=== PATIENT | female | born 1935 | race Caucasian/White ===

== ENCOUNTER 2018-06-29 07:55 | Inpatient (IN) ==
[2018-06-29] MEDS ORDERED: Metoprolol Tartrate 25 MG Tablet PO SCH (09:30)
[2018-06-29] MEDS ORDERED: Chlorhexidine Gluconate 2% 1 Pack (2 Cloths) TOPICAL SCH (09:30)
[2018-06-29] MEDS ORDERED: Heparin - SQ 10,000 UNITS/ML Vial SQ SCH (09:45)
[2018-06-29] MEDS ORDERED: Sodium Chlor 0.9% Inj 500 ML IV.SIG SCH (10:00)
[2018-06-29] MEDS ORDERED: Sugammadex Inj 200 MG/2 ML Vial IV.PUSH ONE (11:04)
[2018-06-29] MEDS ORDERED: Famotidine PF Inj 20 MG/2 ML Vial ONE (11:04)
[2018-06-29] MEDS ORDERED: Labetalol HCl Inj 100 MG/20 ML Vial IV.PUSH ONE (12:00)
[2018-06-29] MEDS ORDERED: Lidocaine PF 1% Inj 5 ML Syringe INFILTRATN ONE (12:00)
[2018-06-29] MEDS ORDERED: Phenylephrine/NS 1000 MCG/10ML Syringe IV.PUSH ONE (12:00)
[2018-06-29 13:59] LABS: ABG Base Excess -4.6 mmol/L (-2-2); ABG PCO2 41 mmHg (38-42); ABG PO2 137 mmHG (61-120)
[2018-06-29 14:07] LABS: Baso % (Auto) 0.3 % (0.0-2.0); Eos # (Auto) 0.2 th/mm3 (0.0-0.4); Eos % (Auto) 1.8 % (0.0-4.0); Hemoglobin 10.1 gm/dL (11.6-15.3); Lymph # (Auto) 2.2 th/mm3 (1.0-4.8); Lymph % (Auto) 19.1 % (9.0-44.0); Mean Corpuscular HGB Conc 32.4 % (32.0-36.0); Mean Corpuscular Hemoglobin 28.6 pg (27.0-34.0); Mean Corpuscular Volume 88.1 fL (80.0-100.0); Mean Platelet Volume 8.5 fL (7.0-11.0); Mono # (Auto) 0.7 th/mm3 (0.0-0.9); Mono % (Auto) 6.3 % (0.0-8.0); Neut # (Auto) 8.3 th/mm3 (1.8-7.7); Neut % (Auto) 72.5 % (16.0-70.0); Platelet Count 333 th/mm3 (150-450); Red Blood Count 3.53 mil/mm3 (4.00-5.30); Red Cell Distribution Width 15.8 % (11.6-17.2); White Blood Count 11.4 th/mm3 (4.0-11.0)
[2018-06-29 16:50] LABS: Baso % (Auto) 0.2 % (0.0-2.0); Eos % (Auto) 0.2 % (0.0-4.0); Hematocrit 28.1 % (35.0-46.0); Hemoglobin 9.7 gm/dL (11.6-15.3); Lymph # (Auto) 2.3 th/mm3 (1.0-4.8); Lymph % (Auto) 10.3 % (9.0-44.0); Mean Corpuscular HGB Conc 34.4 % (32.0-36.0); Mean Corpuscular Hemoglobin 30.4 pg (27.0-34.0); Mean Corpuscular Volume 88.5 fL (80.0-100.0); Mean Platelet Volume 8.7 fL (7.0-11.0); Mono # (Auto) 0.8 th/mm3 (0.0-0.9); Mono % (Auto) 3.5 % (0.0-8.0); Neut # (Auto) 18.7 th/mm3 (1.8-7.7); Neut % (Auto) 85.8 % (16.0-70.0); Platelet Count 336 th/mm3 (150-450); Red Blood Count 3.18 mil/mm3 (4.00-5.30); Red Cell Distribution Width 15.9 % (11.6-17.2); White Blood Count 21.8 th/mm3 (4.0-11.0)
[2018-06-29] MEDS ORDERED: *Ondansetron Inj 4 MG/2 ML Vial PERIprocedural Use ONLY ONE (17:09)
[2018-06-29 17:10] LABS: Calcium 7.4 mg/dL (8.5-10.1); Carbon Dioxide 19.6 meq/L (21.0-32.0); Potassium 4.7 meq/L (3.5-5.1)
[2018-06-29] MEDS ORDERED: HYDROmorphone PF Inj 2 MG/ML Vial ONE (17:18)
[2018-06-29 17:19] LABS: Eosinophils 1 % (0-4); Lymphocytes 10 % (9-44); Monocytes 2 % (0-8)
[2018-06-29] MEDS ORDERED: fentaNYL Citrate Inj 100 MCG/2 ML Ampul ONE (17:19)
[2018-06-29 17:20] LABS: Platelet Estimate Normal (Normal); Platelet Morphology Normal (Normal)
[2018-06-29 17:26] LABS: Total Protein 5.4 g/dL (6.4-8.2)
[2018-06-29] MEDS: KCL 20 mEq/D5W/NaCl 0.45% Inj 1,000 ML IV.CONT SCH (18:00)
[2018-06-29] MEDS ORDERED: Ketorolac Inj 30 MG/ML (IVP) Vial IV.PUSH SCH (18:00)
--- NOTE | 2018-06-29 18:09 | P.CONCC ---
History of Present Illness Service: Critical care medicine Consult date: 06/29/18 Requesting Physician: Lary Abdlu Reason for Consult: Critical care management Primary Care Provider: Ramon Ring MD Family Provider: Unknown Chief Complaint: Status post exploratory laparotomy History of Present Illness: This is an 83-year-old female. Date of admission 06/29/2018. Consultation 06/29/2018. Past medical history includes hypertension, hyperlipidemia, diverticulosis, gastroesophageal reflux, hiatal hernia, hypothyroidism and allergic rhinitis. 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 Abdul. Received 2600 crystalloid. 1000 cc EBL. 500 cc urine output. Ascites is approximately 1400 cc. Hemoglobin is currently 9.7. Patient was weaned off phenylephrine drip is currently hemodynamic stable. Currently complaining of nausea received ondansetron and metoclopramide. Review of Systems Constitutional: Reports weakness, Reports weight gain, Denies anorexia, Denies body ache(s), Denies night sweats, Denies weight loss Eyes: Denies dry eyes, Denies sensitivity to light Ears, Nose, Mouth, and Throat: Reports abnormal hearing, Reports sore throat, Denies bad breath, Denies poor balance Cardiovascular: Denies chest pain, Denies shortness of breath Respiratory: Denies cough, Denies shortness of breath Gastrointestinal: Reports abdominal pain, Reports nausea, Denies vomiting Genitourinary: Denies sexual problems Musculoskeletal: Denies back pain, Denies neck pain Skin/Breast: Denies lesions, Denies rash Neurologic: Denies lack of coordination, Denies localized weakness, Denies tremor(s) Psychiatric: Denies anxiety, Denies depression Endocrine: Denies increased thirst, Denies increased urination Hematologic/Lymphatic: Denies easy bleeding Allergic/Immunologic: Reports seasonal runny nose, Denies GI upset with certain foods PMFSH - History History Provided By: Patient - Medical History Medical History: Medical History (Last Updated 06/29/18 @ 08:54 by Johanna Sharma) Kidney dysfunction Diverticulitis Full dentures GERD (gastroesophageal reflux disease) Hernia, hiatal History of anesthesia reaction History of open fracture Hx of ascites Hypertension Hypothyroidism - Surgical History Surgical History: Surgical History (Last Reviewed 06/29/18 @ 08:23 by Johanna Sharma) Hx of cataract surgery Hx of cholecystectomy Hx of hemorrhoidectomy - Family History Family History: Family History (Last Updated 06/29/18 @ 18:07 by Eduin Graff MD) Other No significant family history - Tobacco History Second Hand Smoke Exposure: No Tobacco Use In Past 30 Days: No Smoking Status: Former smoker Tobacco Type: Cigarettes - Alcohol History How Often Do You Have a Drink Containing Alcohol: Monthly or less - Substance Use History Substance History: No History of Abuse Medications and Allergies Active Medications: Active Medications Atorvastatin Calcium (Lipitor) 10 mg PO DAILY [facility] Chlorhexidine Gluconate (Chlorhexidine 2% Cloth) 3 pack TOPICAL [facility]ARE [facility]ION [facility] Stop: 07/02/18 09:26 Last Admin: 06/29/18 08:15 Dose: 3 pack Clonidine HCl (Catapres) 0.1 mg PO HS [facility]ESS Clonidine HCl (Catapres) 0.2 mg PO DAILY [facility] Diphenhydramine HCl (Benadryl) 25 mg PO Q6H PRN PRN Reason: ITCHING Fenofibrate (Tricor) 48 mg PO DAILY [facility] Heparin Sodium (Porcine) (Heparin Inj) 5,000 units SQ [facility]ANION [facility] Stop: 07/02/18 09:44 Last Admin: 06/29/18 10:07 Dose: 5,000 units Lactated Ringer's (Lr 1000 Ml Inj) 1,000 mls @ 30 mls/hr IV.SIG .Q24H [facility]ESS Stop: 07/02/18 09:26 Last Infusion: 06/29/18 13:15 Dose: Infused Sodium Chloride (Ns Inj) 500 mls @ 30 mls/hr IV.SIG .Q10H [facility] Stop: 07/02/18 09:26 Cefazolin Sodium 1,000 mg/ (Sodium Chloride) 100 mls @ 200 mls/hr IV.SIG [facility] Stop: 07/02/18 09:59 Last Admin: 06/29/18 11:45 Dose: 200 mls/hr Potassium Chloride/Dextrose/Sod Cl (D5w/1/2ns + Kcl 20 Meq Inj) 1,000 mls @ 100 mls/hr IV.CONT .Q10H [facility] Ketorolac Tromethamine (Toradol Inj) 15 mg IV.PUSH Q6HR [facility] Stop: 07/01/18 12:01 Levothyroxine Sodium (Synthroid) 75 mcg PO DAILY@0600 [facility] Metoprolol Tartrate (Lopressor) 25 mg PO [facility] Stop: 07/02/18 09:26 Miscellaneous Information ([facility] [place] [facility] [place] 1 each OTHER UNSCH PRN PRN Reason: SEE LABEL COMMENTS Stop: 06/30/18 17:04 Ondansetron HCl (Zofran Odt) 4 mg SL Q6H PRN PRN Reason: NAUSEA OR VOMITING Pantoprazole Sodium (Protonix) 40 mg PO DAILY [facility] Patient Own Medication - ( Levocetirizine [ Levocetirizine] 5 Mg ) Tablet 1 each PO DAILY [facility] Povidone Iodine (Betadine 5% Antisepsis Kit) 1 applicatio EACH NARE [facility] Stop: 07/02/18 09:26 Last Admin: 06/29/18 09:00 Dose: 1 applicatio Prochlorperazine Edisylate (Compazine Inj) 5 mg IV.PUSH Q4H PRN PRN Reason: BREAKTHROUGH NAUSEA Sodium Chloride (Ns Flush) 2 ml IV.FLUSH BID [facility] Sodium Chloride (Ns Flush) 2 ml IV.FLUSH PRN PRN PRN Reason: FLUSH AFTER USING IV ACCESS Tramadol HCl (Ultram) 50 mg PO Q6H PRN PRN Reason: PAIN SCALE 1-10 Allergies Allergy/AdvReac Type Severity Reaction Status Date / Time morphine Allergy Swelling Verified 06/29/18 08:31 of Lip/Tongue/Throat diazepam [From Valium] AdvReac Hallucinati Verified 06/29/18 08:57 ons Home Medications Medication Instructions Recorded Confirmed Type atorvastatin 10 mg PO DAILY 06/18/18 06/29/18 History biotin 1 mg PO DAILY 06/18/18 06/29/18 History clonidine HCl 0.1 mg PO HS 06/18/18 06/29/18 History clonidine HCl 0.2 mg PO DAILY 06/18/18 06/29/18 History fenofibrate nanocrystallized 48 mg PO DAILY 06/18/18 06/29/18 History levocetirizine 5 mg PO DAILY 06/18/18 06/29/18 History levothyroxine [Synthroid] 75 mcg PO DAILY 06/18/18 06/29/18 History lisinopril 40 mg PO DAILY 06/18/18 06/29/18 History metoprolol succinate 100 mg PO HS 06/18/18 06/29/18 History multivitamin [Daily Multi-Vitamin] 1 tab PO DAILY 06/18/18 06/29/18 History pantoprazole [Protonix] 40 mg PO DAILY 06/18/18 06/29/18 History aspirin [Adult Low Dose Aspirin] 81 mg PO DAILY 06/29/18 06/29/18 History Physical Exam Vital signs: Vital Signs 06/29/18 08:36 Temperature 98.8 F Pulse Rate 88 Respiratory Rate 16 Blood Pressure 142/69 H Pulse Oximetry 95 Intake & Output 06/28/18 06/29/18 06/29/18 18:59 06:59 18:59 Intake Total 2600 / 2600 Output Total 1500 / 1500 Balance 1100 / 1100 Weight 76.1 kg Intake: IV 1000 / 1000 LR 1000 mL Inj 1,000 ML @ 30 1000 / 1000 mls/hr IV.SIG .Q24H [facility]ESS Rx#: [id number] Anesthesia Amount 1600 / 1600 Output: Estimated Blood Loss 1000 / 1000 Urine Amount (Catheter) 500 / 500 3-way Urethral 500 / 500 Other: Weight On Admission 76.1 kg - Constitutional no acute distress, thin, cooperative - Routine HEENT Exam Head: Present: normocephalic, atraumatic Eye: Present: EOMI, PERRL ENT: Present: mucous membranes moist - Routine Neck Exam Present: supple. Absent: JVD - Routine Respiratory Exam Present: CTA bilaterally. Absent: rales, rhonchi, wheezes, crackles - Routine Cardiovascular Exam Present: RRR, S1, S2, murmur. Absent: rubs, S3, S4, click - Routine Abdominal Exam Present: soft, tenderness, surgical scars. Absent: distended, drain - Routine Exam Patient deferred: external exam, groin exam, perineal exam - Routine Skin Exam Present: dry. Absent: cyanosis, erythema - Routine Neurological Exam Present: alert, CN II-XII intact. Absent: sensory deficit, motor deficit - Detailed Neurological Exam: Coma Scale Eye Opening: Spontaneous Verbal Response: Oriented Motor Response: Obey commands Miriam Coma Scale Total: 15 - Routine Psychiatric Exam Present: normal affect - Urinary Catheter Management 3-way Urethral Cath placed during this visit: yes Reason for continuing: Hourly intake/output Insertion date: 06/29/18 Insertion time: 12:43 Septic Shock Reassessment Septic shock perfusion: reassessment completed Assessment and Plan - Assessment and Plan Plan: Neuro/Psych: History of allergic rhinitis Ketorolac 15 mg IV every 6 hours 2 days scheduled Tramadol 50 mg every 6 hours as needed pain Hydromorphone 0.5 mg IV every 4 hours as needed breakthrough pain Holding levo cetirizine/home medication. Resume when clinically indicated CV: History of essential hypertension Hyperlipidemia Resume atorvastatin 10 mg daily/home medication with fenofibrate 48 mg daily Holding metoprolol succinate 100 mg daily lisinopril 40 mg daily in light of hypotension. Continue clonidine 0.2 mg a.m. 0.1 mg at bedtime. Hold if heart rate less than 60, systolic blood pressure less than 110 Hold aspirin 81 mg daily postoperative with acute bleeding Resp: Nasal cannula to maintain saturations greater than or equal to 92%. Currently on 2 L Incentives spirometry every hour while awake. GI: Gastroesophageal reflux disease History of hiatal hernia Diverticulosis Postoperative nausea Clear liquid diet per Dr. bAdul Pantoprazole for GI prophylaxis. Patient is on Protonix 40 mg daily at home. As needed metoclopramide, ondansetron and prochlorperazine for nausea : Patient currently has a Isaac catheter. 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 Abdul Postoperative cares for Dr. Adbul Endo: Hypothyroidism Continue levothyroxine 75 mcg p.o. daily. Sliding-scale insulin if indicated to maintain euglycemia Renal: Check BMP stat. Monitor urine output Accurate I's and O's Heme: Acute blood loss anemia Recheck CBC now. Last hemoglobin 9.7. Patient is type and screen Monitor CBC daily. Follow trends ID: Monitor for signs and symptomatology of infection. Received 2 g cefazolin in OR. MSK: PT evaluate and treat FEN: Replace electrolytes as clinically indicated Currently on D5 one half normal saline with 20 mEq potassium chloride at 100 cc an hour Access -Left radial arterial line day #1 placed in OR Prophylaxis -GI -pantoprazole -DVT -SCD/pharmacological prophylaxis when okay with Dr. 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 Dr. Abdul. Care plan discussed and all questions answered.
[2018-06-29] MEDS ORDERED: HYDROmorphone PF Inj 0.5 MG/0.5 ML Syringe IV.PUSH PRN (18:12)
[2018-06-29] MEDS ORDERED: HYDROmorphone PF Inj 2 MG/ML Vial IV.PUSH PRN (18:30)
[2018-06-30 02:41] LABS: Hematocrit 27.1 % (35.0-46.0); Hemoglobin 8.6 gm/dL (11.6-15.3); Lymph # (Auto) 0.5 th/mm3 (1.0-4.8); Lymph % (Auto) 3.7 % (9.0-44.0); Mean Corpuscular HGB Conc 31.9 % (32.0-36.0); Mean Corpuscular Hemoglobin 27.9 pg (27.0-34.0); Mean Corpuscular Volume 87.4 fL (80.0-100.0); Mean Platelet Volume 8.5 fL (7.0-11.0); Mono # (Auto) 0.8 th/mm3 (0.0-0.9); Mono % (Auto) 5.3 % (0.0-8.0); Neut # (Auto) 12.8 th/mm3 (1.8-7.7); Platelet Count 280 th/mm3 (150-450); Red Cell Distribution Width 15.4 % (11.6-17.2)
[2018-06-30 02:58] LABS: Calcium 7.5 mg/dL (8.5-10.1); Carbon Dioxide 19.1 meq/L (21.0-32.0); Magnesium 1.8 mg/dL (1.5-2.5); Phosphorus 3.7 mg/dL (2.5-4.9)
[2018-06-30 02:59] LABS: INR 1.1 Ratio; Prothrombin Time 11.4 sec (9.8-11.6)
[2018-06-30 03:08] LABS: Thyroid Stimulating Hormone 2.8 uIU/mL (0.358-3.740)
[2018-06-30] MEDS: KCL 20 mEq/D5W/NaCl 0.45% Inj 1,000 ML IV.CONT SCH ×2 (04:13→14:28)
[2018-06-30] MEDS: Levothyroxine 75 MCG Tablet PO SCH (05:30)
--- NOTE | 2018-06-30 07:24 | P.PN ---
Subjective Interval history: c/o pain, nausea c/w surgery c/o nausea c/w anesthesia improved with meds Physical Exam Vital signs: Vital Signs 06/29/18 08:36 06/29/18 17:05 06/29/18 17:15 Temperature 98.8 F 97.5 F L Pulse Rate 88 70 66 Respiratory Rate 16 16 16 Blood Pressure 142/69 H 105/70 106/53 L Pulse Oximetry 95 100 99 06/29/18 17:30 06/29/18 17:45 06/29/18 18:00 Temperature Pulse Rate 64 62 62 Respiratory Rate 16 16 16 Blood Pressure 100/52 L 102/51 L 110/55 L Pulse Oximetry 99 100 100 06/29/18 18:15 06/29/18 18:30 06/29/18 20:00 Temperature 97.8 F Pulse Rate 62 64 61 Respiratory Rate 16 16 21 Blood Pressure 104/51 L 106/51 L 134/60 Pulse Oximetry 100 100 99 06/29/18 22:45 06/30/18 00:00 06/30/18 04:00 Temperature Pulse Rate Respiratory Rate Blood Pressure 131/75 116/56 L Pulse Oximetry 100 98 98 Intake & Output 06/29/18 06/30/18 06/30/18 18:59 06:59 18:59 Intake Total 2800 / 2800 1100 / 1100 Output Total 1600 / 1600 600 / 600 Balance 1200 / 1200 500 / 500 Weight 76.1 kg Intake: IV 1000 / 1000 1100 / 1100 D5W/1/2NS + KCL 20 mEq Inj 1, 1000 / 1000 000 ML @ 100 mls/hr IV.CONT . Q10H [facility] Rx#:[id number] Ofirmev Inj 1,000 mg In 100 ml 100 / 100 @ 400 mls/hr IV.SIG Q8H [facility] Rx# :[id number] LR 1000 mL Inj 1,000 ML @ 30 1000 / 1000 mls/hr IV.SIG .Q24H [facility] Rx#: [id number] Anesthesia Amount 1600 / 1600 Other 200 / 200 Output: Estimated Blood Loss 1000 / 1000 Urine Amount (Catheter) 600 / 600 600 / 600 3-way Urethral 600 / 600 Indwelling Urethral Catheter 600 / 600 Other: Other Intake Source Saline Solution Weight On Admission 76.1 kg - Constitutional no acute distress - Routine HEENT Exam Eye: Present: PERRL - Routine Cardiovascular Exam Present: RRR - Routine Abdominal Exam Present: soft, wound (clean, dry) - Routine Neurological Exam Present: alert, oriented X3 - Urinary Catheter Management 3-way Urethral Cath placed during this visit: yes Reason for continuing: Acute urinary retention Insertion date: 06/29/18 Insertion time: 12:43 Indwelling Urethral Catheter Cath placed during this visit: no Results - Labs CBC & Chem 7: 06/30/18 02:25 06/30/18 02:25 Laboratory Results - last 24 hr 06/29/18 06/29/18 06/29/18 08:50 13:40 13:50 WBC 11.4 H RBC 3.53 L Hgb 10.1 L Hct 31.0 L MCV 88.1 MCH 28.6 MCHC 32.4 RDW 15.8 Plt Count 333 MPV 8.5 Prelim Diff (Auto) Neut % (Auto) 72.5 H Lymph % (Auto) 19.1 [place] % (Auto) 6.3 Eos % (Auto) 1.8 Baso % (Auto) 0.3 Neut # (Auto) 8.3 H Lymph # (Auto) 2.2 [place] # (Auto) 0.7 Eos # (Auto) 0.2 Baso # (Auto) 0.0 WBC Differential . Seg Neuts % (Manual) Band Neuts % (Manual) Lymphocytes % (Manual) Monocytes % (Manual) Eosinophils % (Manual) Abs Neuts (Manual) Differential Comment Auto diff final Platelet Estimate Platelet Morphology PT INR Puncture Site Art line Patient Temperature 98.6 O2 Saturation 96 ABG pH 7.32 L ABG pCO2 41 ABG pO2 137 H ABG HCO3 21 L ABG O2 Content 14.2 ABG Base Excess -4.6 L ABG Methemoglobin 1.4 Hemoglobin 10.4 L Carboxyhemoglobin 1.4 O2 Delivery Device Ventilator Inspired O2 55 Critical Value No Sodium Potassium Chloride Carbon Dioxide Anion Gap BUN Creatinine Estimated GFR Random Glucose Lactic Acid Calcium Prot Corrected Calcium Phosphorus Magnesium Total Protein TSH Blood Type A Positive Antibody Screen Negative MTS Gel Crossmatch See Detail 06/29/18 06/29/18 06/30/18 16:00 16:00 02:25 WBC 21.8 H D RBC 3.18 L Hgb 9.7 L Hct 28.1 L MCV 88.5 MCH 30.4 MCHC 34.4 RDW 15.9 Plt Count 336 MPV 8.7 Prelim Diff (Auto) Slide review pending Neut % (Auto) 85.8 H Lymph % (Auto) 10.3 [place] % (Auto) 3.5 Eos % (Auto) 0.2 Baso % (Auto) 0.2 Neut # (Auto) 18.7 H Lymph # (Auto) 2.3 [place] # (Auto) 0.8 Eos # (Auto) 0.0 Baso # (Auto) 0.0 WBC Differential Manual diff final Seg Neuts % (Manual) 76 H Band Neuts % (Manual) 11 H Lymphocytes % (Manual) 10 Monocytes % (Manual) 2 Eosinophils % (Manual) 1 Abs Neuts (Manual) 19.0 H Differential Comment . Platelet Estimate Normal Platelet Morphology Normal PT INR Puncture Site Patient Temperature O2 Saturation ABG pH ABG pCO2 ABG pO2 ABG HCO3 ABG O2 Content ABG Base Excess ABG Methemoglobin Hemoglobin Carboxyhemoglobin O2 Delivery Device Inspired O2 Critical Value Sodium 139 Potassium 4.7 Chloride 107 Carbon Dioxide 19.6 L Anion Gap 12 BUN 22 H Creatinine 1.32 H Estimated GFR 38 L Random Glucose 138 H Lactic Acid 0.8 Calcium 7.4 L* Prot Corrected Calcium 8.3 L Phosphorus Magnesium Total Protein 5.4 L TSH Blood Type Antibody Screen MTS Gel Crossmatch 06/30/18 06/30/18 06/30/18 02:25 02:25 02:25 WBC 14.0 H RBC 3.10 L Hgb 8.6 L Hct 27.1 L MCV 87.4 MCH 27.9 MCHC 31.9 L RDW 15.4 Plt Count 280 MPV 8.5 Prelim Diff (Auto) Neut % (Auto) 91.0 H Lymph % (Auto) 3.7 L [place] % (Auto) 5.3 Eos % (Auto) 0.0 Baso % (Auto) 0.0 Neut # (Auto) 12.8 H Lymph # (Auto) 0.5 L [place] # (Auto) 0.8 Eos # (Auto) 0.0 Baso # (Auto) 0.0 WBC Differential . Seg Neuts % (Manual) Band Neuts % (Manual) Lymphocytes % (Manual) Monocytes % (Manual) Eosinophils % (Manual) Abs Neuts (Manual) Differential Comment Auto diff final Platelet Estimate Platelet Morphology PT 11.4 INR 1.1 Puncture Site Patient Temperature O2 Saturation ABG pH ABG pCO2 ABG pO2 ABG HCO3 ABG O2 Content ABG Base Excess ABG Methemoglobin Hemoglobin Carboxyhemoglobin O2 Delivery Device Inspired O2 Critical Value Sodium 138 Potassium 5.0 Chloride 107 Carbon Dioxide 19.1 L Anion Gap 12 BUN 23 H Creatinine 1.64 H Estimated GFR 30 L Random Glucose 204 H Lactic Acid Calcium 7.5 L Prot Corrected Calcium Phosphorus 3.7 Magnesium 1.8 Total Protein TSH 2.800 Blood Type Antibody Screen MTS Gel Crossmatch Assessment and Plan - Plan spirometry, oob to chair brigitte tello/ela sr when ambulatory consider transfusion for hgb < 7 cpm, grateful for country manager care q&a, findings at surgery, preliminary path discussed
--- NOTE | 2018-06-30 08:21 | MP ---
cc: Lary Abdul MD, Carhine Shochan, DATE OF OPERATION: 06/29/2018 PREOPERATIVE DIAGNOSES: 1. Large complex abdominopelvic mass. 2. Status post prior hysterectomy and left salpingo-oophorectomy. POSTOPERATIVE DIAGNOSES: 1. Large right ovarian tumor. 2. Status post prior hysterectomy and left salpingo-oophorectomy. 3. Extensive intraperitoneal and intra-abdominal adhesions. PROCEDURE PERFORMED: Exploratory laparotomy, extensive lysis of adhesions, resection of 28 cm right ovarian tumor and omentectomy. 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 INTRAOPERATIVE CONSULTATION: Dr. Leda Rogers, colorectal surgery. IV FLUIDS: 2600. ESTIMATED BLOOD LOSS: 1000. URINE OUTPUT: 500. ASCITES: 1400. PATIENT HISTORY: An 83-year-old female who by her own admission for at least a year and a half has noticed increasing abdominal girth, pelvic pain and pressure, GI symptomatology for which she finally sought evaluation. She underwent an initial GI evaluation. Further observation and testing revealed an overt complex mass, approximately 28 cm in greatest dimension, large solid component, complex in nature. There was also ascites, pleural effusion, imaging suggesting peritoneal thickening or nodularity and elevated CA-125 of greater than 2000. She was counseled regarding these findings and recommendation for surgical exploration. She is seen again in the preoperative holding area prior to surgery were findings are again reviewed. Plan of care is discussed. Concerns regarding likelihood of malignancy were reviewed. Questions were asked and answered. She expressed good understanding and agreed to move forward with surgery. FINDINGS: Upon exploration, distorted anatomy and extensive adhesions were noted. There was a very large tumor occupying the pelvis, extending well above the pelvis into the abdomen, almost to the level of the sternum, extending from sidewall to sidewall. The omentum is adherent to the mass and pulled down into the pelvis. The sigmoid colon is markedly distorted, it is overlying the mass and the colon and mesentery are draped over the ventral lower portion of the mass and the sigmoid colon is adherent to the peritoneum just below the anterior abdominal wall, fixed to the bladder. The uterus and cervix were found to be surgically absent, consistent with her history and the left tube and ovary were found to be surgically absent, consistent with her history. There were dense adhesions circumferentially around this mass and it took extensive dissection to free these adhesions and to clarify the anatomy and identify the blood supply coming from the right gonadal vessels, which helped confirm this to be a right ovarian tumor. 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 At the conclusion of the case, all grossly visible tumor had been completely resected. Reevaluation of the anatomy showed the liver, diaphragm edges to be smooth. The omentum, although distorted by the mass, grossly appeared normal, other than some inflammatory changes. The large and small bowel were inspected. The small bowel was run from the ileocecal valve to the ligament of Treitz and there were no implants on the bowel or mesentery. No peritoneal implants were able to be appreciated. There was ascites present, which was removed, estimated to be approximately 1400 and the tumor and its attachments were somewhat vascular with an estimated blood loss of 1000 mL. STATEMENT OF COMPLEXITY/MODIFIER: This was an extremely large ovarian tumor that required aggressive cytoreduction, and there were extensive adhesions, which required a significant amount of additional time and dissection to gain access to the peritoneal cavity, restore normal anatomy and accomplish surgical objectives. Modifier should be applied accordingly. DESCRIPTION OF PROCEDURE: She was taken to the operating room and placed in the dorsal lithotomy position, after general endotracheal anesthesia was administered. A timeout was undertaken. She was identified by site recognition and hospital ID bracelet and the proposed procedure was reviewed and confirmed. She was carefully positioned in Fermin stirrups. Her arms were secured, relaxed out to the sides. She was prepped and draped in sterile fashion. Isaac catheter placed in the bladder. An orogastric tube had been placed in the stomach on suction. She was prepped and draped including Ioban over the abdominal wall. She had a previous midline/paramedian vertical incision below her umbilicus, presumably from her hysterectomy and this incision was followed again, carried around the umbilicus, continued up above the umbilicus in the midline. Incision was carried down to the level of the fascia. The fascia was entered. The rectus muscles were in the midline. The peritoneal cavity was entered. Visual and manual inspection confirmed that whereas there was weakness near the umbilicus, there was no hernia sac and no content within the umbilicus. Adhesions were taken down. Ascites was removed and collected for cytology. Extensive course of evaluating and reevaluating the anatomy with lysis of adhesions were carried out as the omentum was draped over the mass. This was first freed from the mass and an omentectomy was performed. Nonvascular attachments were taken off the transverse colon with cautery. Vascular attachments were isolated, clamped, cut, and suture ligated with 2-0 Vicryl sutures, and the omentum was dissected free and sent as a separate specimen. Sharp dissection was used to carry out resecting the colon and mesentery from this mass. Bleeding was encountered and rendered hemostatic with interrupted 3-0 Vicryl sutures. Adhesions were lysed and taken down circumferentially in a stepwise fashion with still limited mobility of this large mass. Eventually retroperitoneal dissection along the right pelvic sidewall was able to identify the right infundibulopelvic ligament. The ureter was identified, palpated below this area and the intervening peritoneum was opened, and the right infundibulopelvic ligament was able to be isolated, doubly clamped, cut and doubly suture ligated. Dissection was continued with sharp and blunt dissection along the right side of the mass and posteriorly as well as along the left side of the mass. The residual round ligaments were isolated, suture ligated and transected. The colon and mesentery were freed eventually from the mass. Lap pads were used to pack the various areas of bleeding until the residual right uteroovarian ligament was isolated, clamped, cut, and suture ligated, thereby freeing this mass circumferentially. The mass was removed and sent for preliminary histopathologic analysis. The anatomy was reexplored with findings as described above. No other evidence of disease was detected within the peritoneal cavity or retroperitoneum. There were no appreciably enlarged lymph nodes and no peritoneal nodularity. Bleeders were rendered hemostatic with 3-0 Vicryl suture and the pelvis was inspected as the packings were removed. Dr. Kiah Rogers was consulted, who graciously scrubbed into the case, as I requested confirmation initially to ensure that this was not a tumor arising from the bowel, but by now this had been clarified and the tumor had been resected. Dr. Rogers scrubbed in and helped to mobilize the colon, free it from its abnormal adherent course and confirm the integrity of the bowel without injury, showing no injury to the bowel. Please see her OP note for her findings and steps taken. The pelvis was thoroughly irrigated. There was satisfactory hemostasis. Visual and manual inspection allowed removal of all lap pads. Each site was inspected and noted to be hemostatic. Careful inspection and evaluation confirmed no remaining foreign objects in the peritoneal cavity. Preliminary counts were correct. Surgicel SNoW was placed in the pelvis along the dissection bed where the tumor had been adherent to adjacent structures to assist in continued hemostasis. It was felt that all reasonable surgical objectives had been completed, so attention was directed toward closing. The abdominal wall was closed with looped PDS in a running modified Smead-Castro fashion, starting at the apices and meeting in the midpoint where the sutures were tied. After being irrigated subcutaneous tissue reapproximated with interrupted 2-0 Vicryl sutures, and the skin edge was closed with a running 3-0 subcuticular closure. Steri-Strips and dry sterile dressing were placed over the incision. Pelvic exam confirmed there were no remaining foreign objects in the pelvis. Final counts were correct. She was returned to dorsal supine position and was pending reversal of anesthesia well when I left the operating room to precede her to the postanesthesia care unit. MD NIEVES Mcintosh/DIRK , 07:38 AM , 07:57 AM
[2018-06-30] MEDS ORDERED: LEVOCETIRIZINE 5 MG PO SCH (09:00)
[2018-06-30] MEDS ORDERED: Lisinopril 20 MG Tablet PO SCH (09:00)
[2018-06-30] MEDS: Fenofibrate 48 MG Tablet PO SCH (09:39)
--- NOTE | 2018-06-30 11:10 | P.PNCC ---
Subjective Subjective Remarks/Hospital Course: This is an 83-year-old female. Date of admission 06/29/2018. Consultation 06/29/2018. Past medical history includes hypertension, hyperlipidemia, diverticulosis, gastroesophageal reflux, hiatal hernia, hypothyroidism and allergic rhinitis. 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 Abdul. Received 2600 crystalloid. 1000 cc EBL. 500 cc urine output. Ascites is approximately 1400 cc. Hemoglobin is currently 9.7. Patient was weaned off phenylephrine drip is currently hemodynamic stable. Currently complaining of nausea received ondansetron and metoclopramide. SUBJ 06/30: Sitting up in chair in no acute distress. Pain adequately controlled complains of occasional nausea. WBC down to 14 K hemoglobin 8.6 Objective Vital Signs / I&O: Vital Signs 06/29/18 17:05 06/29/18 17:15 06/29/18 17:30 Temperature 97.5 F L Pulse Rate 70 66 64 Respiratory Rate 16 16 16 Blood Pressure 105/70 106/53 L 100/52 L Pulse Oximetry 100 99 99 06/29/18 17:45 06/29/18 18:00 06/29/18 18:15 Temperature Pulse Rate 62 62 62 Respiratory Rate 16 16 16 Blood Pressure 102/51 L 110/55 L 104/51 L Pulse Oximetry 100 100 100 06/29/18 18:30 06/29/18 20:00 06/29/18 22:45 Temperature 97.8 F Pulse Rate 64 61 Respiratory Rate 16 21 Blood Pressure 106/51 L 134/60 Pulse Oximetry 100 99 100 06/30/18 00:00 06/30/18 04:00 06/30/18 08:00 Temperature 97.7 F Pulse Rate 85 Respiratory Rate 19 Blood Pressure 131/75 116/56 L 125/61 Pulse Oximetry 98 98 98 06/30/18 08:32 Temperature Pulse Rate Respiratory Rate Blood Pressure Pulse Oximetry 99 Intake & Output 06/29/18 06/30/18 06/30/18 18:59 06:59 18:59 Intake Total 2800 / 2800 1100 / 1100 Output Total 1600 / 1600 600 / 600 Balance 1200 / 1200 500 / 500 Weight 76.1 kg Intake: IV 1000 / 1000 1100 / 1100 D5W/1/2NS + KCL 20 mEq Inj 1, 1000 / 1000 000 ML @ 100 mls/hr IV.CONT . Q10H TESS Rx#:[id number] Ofirmev Inj 1,000 mg In 100 ml 100 / 100 @ 400 mls/hr IV.SIG Q8H TESS Rx# :[id number] LR 1000 mL Inj 1,000 ML @ 30 1000 / 1000 mls/hr IV.SIG .Q24H TESS Rx#: [id number] Anesthesia Amount 1600 / 1600 Other 200 / 200 Output: Estimated Blood Loss 1000 / 1000 Urine Amount (Catheter) 600 / 600 600 / 600 3-way Urethral 600 / 600 Indwelling Urethral Catheter 600 / 600 Other: Other Intake Source Saline Solution Weight On Admission 76.1 kg Result Diagrams: 06/30/18 02:25 06/30/18 02:25 Objective Remarks: - Constitutional no acute distress, thin, cooperative, sitting up in chair - Routine HEENT Exam Head: normocephalic, atraumatic Eye: EOMI, PERRL ENT: mucous membranes moist - Routine Neck Exam supple. Absent: JVD - Routine Respiratory Exam CTA bilaterally. No rales, rhonchi, wheezes, crackles - Routine Cardiovascular Exam RRR, S1, S2, No rubs, S3, S4, click - Routine Abdominal Exam Abdomen soft nontender. Incision C/D/I - Routine Neurological Exam Alert, CN II-XII intact. No sensory deficit, motor deficit Assessment and Plan - Assessment and Plan Plan: Neuro/Psych: History of allergic rhinitis Postop pain control Ketorolac 15 mg IV every 6 hours 2 days scheduled Tramadol 50 mg every 6 hours as needed pain Hydromorphone 0.5 mg IV every 4 hours as needed breakthrough pain Holding levo cetirizine/home medication. Resume when clinically indicated CV: History of essential hypertension Hyperlipidemia Resume atorvastatin 10 mg daily/home medication with fenofibrate 48 mg daily Holding metoprolol succinate 100 mg daily lisinopril 40 mg daily in light of hypotension. Continue clonidine 0.2 mg a.m. 0.1 mg at bedtime. Hold if heart rate less than 60, systolic blood pressure less than 110 Hold aspirin 81 mg daily postoperative with acute bleeding Resp: Nasal cannula to maintain saturations greater than or equal to 92%. Incentives spirometry every hour while awake. GI: Gastroesophageal reflux disease History of hiatal hernia Diverticulosis Postoperative nausea Clear liquid diet per Dr. Abdul Pantoprazole for GI prophylaxis. Patient is on Protonix 40 mg daily at home. As needed metoclopramide, ondansetron and prochlorperazine for nausea : Patient currently has a Isaac catheter. 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 Abdul Postoperative cares for Dr. Abdul Follow-up on pathology Endo: Hypothyroidism Continue levothyroxine 75 mcg p.o. daily. Sliding-scale insulin if indicated to maintain euglycemia Renal: BMP as needed Monitor urine output Accurate I's and O's Heme: Acute blood loss anemia Hb stable 8.6. Patient is s/p type and screen Monitor CBC daily. Follow trends ID: Monitor for signs and symptomatology of infection. Received 2 g cefazolin in OR. MSK: PT evaluate and treat FEN: Replace electrolytes as clinically indicated Currently on D5 one half normal saline with 20 mEq potassium chloride at 100 cc an hour Access -Left radial arterial line day #2 placed in OR-DC today Prophylaxis -GI -pantoprazole -DVT -SCD/pharmacological prophylaxis when okay with Dr. Abdul Level 2 Continue ICU care per Dr. Abdul
[2018-07-01] MEDS: KCL 20 mEq/D5W/NaCl 0.45% Inj 1,000 ML IV.CONT SCH (00:29)
[2018-07-01] MEDS: Levothyroxine 75 MCG Tablet PO SCH (05:10)
[2018-07-01] MEDS: [UNRECOGNIZED DRUG - OTHER] PO SCH ×2 (05:13→10:01)
--- NOTE | 2018-07-01 07:49 | P.PNONC ---
Subjective Interval history: POD # 2 patient states feels much better today denies nausea or vomiting pain controlled Objective Vital Signs/Intake & Output: Vital Signs 06/30/18 08:00 06/30/18 08:32 06/30/18 12:00 Temperature 97.7 F 97.6 F Pulse Rate 85 72 Respiratory Rate 19 11 L Blood Pressure 125/61 114/59 L Pulse Oximetry 98 99 94 L 06/30/18 16:00 06/30/18 20:00 06/30/18 20:48 Temperature 97.7 F 98.4 F Pulse Rate 70 72 Respiratory Rate 14 15 Blood Pressure 143/63 H 118/57 L Pulse Oximetry 95 94 L 94 L 07/01/18 00:00 07/01/18 04:00 Temperature 99.0 F 98.4 F Pulse Rate 96 H 74 Respiratory Rate 20 17 Blood Pressure 161/85 H 174/69 H Pulse Oximetry 94 L 93 L Intake & Output 06/30/18 07/01/18 07/01/18 18:59 06:59 18:59 Intake Total 1100 / 1100 1340 / 1340 Output Total 800 / 800 1550 / 1550 Balance 300 / 300 -210 / -210 Intake: IV 1100 / 1100 1100 / 1100 D5W/1/2NS + KCL 20 mEq Inj 1, 1000 / 1000 1000 / 1000 000 ML @ 100 mls/hr IV.CONT . Q10H TESS Rx#:[id number] Ofirmev Inj 1,000 mg In 100 ml 100 / 100 100 / 100 @ 400 mls/hr IV.SIG Q8H TESS Rx# :[id number] Oral 240 / 240 Output: Urine Amount (Catheter) 800 / 800 1550 / 1550 Indwelling Urethral Catheter 800 / 800 1550 / 1550 Result Diagrams: 06/30/18 02:25 06/30/18 02:25 Medications: Active Medications Generic Name Dose Route Start Last Admin Trade Name Freq PRN Reason Stop Dose Admin Atorvastatin Calcium 10 mg 06/30/18 09:00 06/30/18 09:39 Lipitor PO 10 mg DAILY TESS Administration Chlorhexidine Gluconate 3 pack 06/29/18 09:30 06/29/18 08:15 Chlorhexidine 2% Cloth TOPICAL 07/02/18 09:26 3 pack PROPOSAL EDITOR TESS Administration Clonidine HCl 0.1 mg 06/29/18 21:00 06/30/18 21:55 Catapres PO 0.1 mg HS TESS Administration Clonidine HCl 0.2 mg 06/30/18 09:00 06/30/18 09:39 Catapres PO 0.2 mg DAILY TESS Administration Fenofibrate 48 mg 06/30/18 09:00 06/30/18 09:39 Tricor PO 48 mg DAILY TESS Administration Heparin Sodium (Porcine) 5,000 units 06/29/18 09:45 06/29/18 10:07 Heparin Inj SQ 07/02/18 09:44 5,000 units PROPOSAL EDITOR TESS Administration Lactated Ringer's 1,000 mls @ 30 mls/hr 06/29/18 09:30 07/01/18 05:13 Lr 1000 Ml Inj IV.SIG 07/02/18 09:26 Not Given .Q24H TESS Cefazolin Sodium 1,000 mg/ 100 mls @ 200 mls/hr 06/29/18 10:00 06/29/18 11:45 Sodium Chloride IV.SIG 07/02/18 09:59 200 mls/hr PROPOSAL EDITOR TESS Administration Potassium Chloride/Dextrose/Sod Cl 1,000 mls @ 100 mls/hr 06/29/18 16:30 12/18 00:29 D5w/1/2ns + Kcl 20 Meq Inj IV.CONT 100 mls/hr .Q10H TESS Administration Acetaminophen 1,000 mg in 100 mls @ 400 mls/hr 06/29/18 20:00 07/01/18 05:10 Ofirmev Inj IV.SIG 400 mls/hr Q8H TESS Administration Levothyroxine Sodium 75 mcg 06/30/18 06:00 07/01/18 05:10 Synthroid PO 75 mcg DAILY@0600 TESS Administration Ondansetron HCl 4 mg 06/29/18 16:28 06/30/18 09:06 Zofran Odt SL 4 mg Q6H PRN Administration NAUSEA OR VOMITING Pantoprazole Sodium 40 mg 06/30/18 09:00 06/30/18 09:39 Protonix PO 40 mg DAILY TESS Administration Pt:Xyzal 5 Mg 0 each 06/30/18 09:00 07/01/18 05:13 PO Not Given DAILY TESS Povidone Iodine 1 applicatio 06/29/18 09:30 06/29/18 09:00 Betadine 5% Antisepsis Kit EACH NARE 07/02/18 09:26 1 applicatio PROPOSAL EDITOR TESS Administration Prochlorperazine Edisylate 5 mg 06/29/18 18:01 06/30/18 11:46 Compazine Inj IV.PUSH 5 mg Q4H PRN Administration BREAKTHROUGH NAUSEA Sodium Chloride 2 ml 06/29/18 21:00 06/30/18 21:55 Ns Flush IV.FLUSH 2 ml BID TESS Administration Tramadol HCl 50 mg 06/29/18 16:36 06/29/18 23:18 Ultram PO 50 mg Q6H PRN Administration PAIN SCALE 1-10 Objective Remarks: GENERAL: Well-nourished, well-developed patient. SKIN: Warm and dry. HEAD: Normocephalic. EYES: No scleral icterus. No injection or drainage. CARDIOVASCULAR: Regular rate and rhythm without murmurs. RESPIRATORY: Breath sounds equal bilaterally. No accessory muscle use. GASTROINTESTINAL: Abdomen soft, dressing c/d/i EXTREMITIES: teds and scds MUSCULOSKELETAL: Adequate muscle tone. NEUROLOGICAL: No obvious focal deficit. Awake, alert, and oriented x3. PSYCHIATRIC: Appropriate mood and affect; insight and judgment normal. Assessment/Plan - Plan POD #2 s/p X Lap hysterectomy with BSO and resection of large pelvic mass, omentectomy continue current management per critical care team/ Dr Abdul IS at bedside and patient using when awake OOB to chair and ambulate today evaluation by PT and consult case management to help with HH and PT at home upon discharge ADAT OK to discontinue Isaac once ambulatory - Attending Statement Discussed with Dr. Abdul and he is in agreement.
[2018-07-01] MEDS: Fenofibrate 48 MG Tablet PO SCH (08:36)
[2018-07-01] MEDS ORDERED: Labetalol HCl Inj 100 MG/20 ML Vial IV.PUSH PRN (09:31)
--- NOTE | 2018-07-01 09:39 | P.PNCC ---
Subjective Subjective Remarks/Hospital Course: This is an 83-year-old female. Date of admission 06/29/2018. Consultation 06/29/2018. Past medical history includes hypertension, hyperlipidemia, diverticulosis, gastroesophageal reflux, hiatal hernia, hypothyroidism and allergic rhinitis. 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 Abdul. Received 2600 crystalloid. 1000 cc EBL. 500 cc urine output. Ascites is approximately 1400 cc. Hemoglobin is currently 9.7. Patient was weaned off phenylephrine drip is currently hemodynamic stable. Currently complaining of nausea received ondansetron and metoclopramide. SUBJ 06/30: Sitting up in chair in no acute distress. Pain adequately controlled complains of occasional nausea. WBC down to 14 K hemoglobin 8.6 07/01: Patient did well overnight except complaints of hypertension systolic blood pressure 170 now. Currently receiving only clonidine. Will resume her home dose of lisinopril 40 mg daily, metoprolol patient takes 100 mg ER. I will start 100 mg p.o. twice daily with first dose now. Also use as needed IV labetalol for SBP more than 170 Objective Vital Signs / I&O: Vital Signs 06/30/18 12:00 06/30/18 16:00 06/30/18 20:00 Temperature 97.6 F 97.7 F 98.4 F Pulse Rate 72 70 72 Respiratory Rate 11 L 14 15 Blood Pressure 114/59 L 143/63 H 118/57 L Pulse Oximetry 94 L 95 94 L 06/30/18 20:48 07/01/18 00:00 07/01/18 04:00 Temperature 99.0 F 98.4 F Pulse Rate 96 H 74 Respiratory Rate 20 17 Blood Pressure 161/85 H 174/69 H Pulse Oximetry 94 L 94 L 93 L 07/01/18 07:57 Temperature Pulse Rate Respiratory Rate Blood Pressure Pulse Oximetry 96 Intake & Output 06/30/18 07/01/18 07/01/18 18:59 06:59 18:59 Intake Total 1100 / 1100 1340 / 1340 Output Total 800 / 800 1550 / 1550 Balance 300 / 300 -210 / -210 Intake: IV 1100 / 1100 1100 / 1100 D5W/1/2NS + KCL 20 mEq Inj 1, 1000 / 1000 1000 / 1000 000 ML @ 100 mls/hr IV.CONT . Q10H TESS Rx#:[id number] Ofirmev Inj 1,000 mg In 100 ml 100 / 100 100 / 100 @ 400 mls/hr IV.SIG Q8H TESS Rx# :[id number] Oral 240 / 240 Output: Urine Amount (Catheter) 800 / 800 1550 / 1550 Indwelling Urethral Catheter 800 / 800 1550 / 1550 Result Diagrams: 06/30/18 02:25 06/30/18 02:25 Objective Remarks: - Constitutional no acute distress, cooperative, sitting up in bed - Routine HEENT Exam Head: normocephalic, atraumatic Eye: EOMI, PERRL ENT: mucous membranes moist - Routine Neck Exam supple. Absent: JVD - Routine Respiratory Exam CTA bilaterally. No rales, rhonchi, wheezes, crackles - Routine Cardiovascular Exam RRR, S1, S2, No rubs, S3, S4, click - Routine Abdominal Exam Abdomen soft nontender. Incision C/D/I - Routine Neurological Exam Alert, CN II-XII intact. No sensory deficit, motor deficit Assessment and Plan - Assessment and Plan Plan: Neuro/Psych: History of allergic rhinitis Postop pain control Ketorolac 15 mg IV every 6 hours [address] Abdul Tramadol 50 mg every 6 hours as needed pain Hydromorphone 0.5 mg IV every 4 hours as needed breakthrough pain Holding levo cetirizine/home medication. Resume when clinically indicated CV: Uncontrolled hypertension Hyperlipidemia Continue atorvastatin 10 mg daily/home medication with fenofibrate 48 mg daily Resume metoprolol succinate 100 mg daily, lisinopril 40 mg daily in light of hypotension. Continue clonidine 0.2 mg a.m. 0.1 mg at bedtime. IV labetalol as needed for SBP more than 170 Hold aspirin 81 mg daily postoperative with acute bleeding Resp: Nasal cannula to maintain saturations greater than or equal to 92%. Incentives spirometry every hour while awake. GI: Gastroesophageal reflux disease History of hiatal hernia Diverticulosis Postoperative nausea Diet per Dr. Abdul Pantoprazole for GI prophylaxis. Patient is on Protonix 40 mg daily at home. 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 Abdul Postoperative cares for Dr. Abdul Follow-up on pathology Endo: Hypothyroidism Continue levothyroxine 75 mcg p.o. daily. Sliding-scale insulin if indicated to maintain euglycemia Renal: BMP as needed Monitor urine output Accurate I's and O's Heme: Acute blood loss anemia Hb stable 8.6. Patient is s/p type and screen Monitor CBC daily. Follow trends ID: Monitor for signs and symptomatology of infection. Received 2 g cefazolin in OR. MSK: PT evaluate and treat FEN: Replace electrolytes as clinically indicated Currently on D5 one half normal saline with 20 mEq potassium chloride at 100 cc an hour-DC today Access -Left radial arterial line day #2 placed in OR-DC today Prophylaxis -GI -pantoprazole -DVT -SCD/pharmacological prophylaxis when okay with Dr. Abdul Level 2 Ok to transfer out of ICU from critical care stand point. Defer to Dr. Abdul Code Status: Full
[2018-07-01] MEDS: Metoprolol Tartrate 50 MG Tablet PO SCH ×2 (10:01→20:16)
[2018-07-01] MEDS: Lisinopril 20 MG Tablet PO SCH (10:01)
[2018-07-01 11:54] LABS: Hematocrit 29.1 % (35.0-46.0); Hemoglobin 9.4 gm/dL (11.6-15.3); Mean Corpuscular HGB Conc 32.3 % (32.0-36.0); Mean Corpuscular Hemoglobin 28.5 pg (27.0-34.0); Mean Corpuscular Volume 88.5 fL (80.0-100.0); Mean Platelet Volume 8.6 fL (7.0-11.0); Platelet Count 274 th/mm3 (150-450); Red Blood Count 3.29 mil/mm3 (4.00-5.30); Red Cell Distribution Width 15.9 % (11.6-17.2); White Blood Count 11.4 th/mm3 (4.0-11.0)
[2018-07-01 12:15] LABS: Albumin 2.3 g/dL (3.4-5.0); Anion Gap 9 meq/L (5-15); Aspartate Aminotransferase 77 U/L (15-37); Blood Urea Nitrogen 14 mg/dL (7-18); Calcium 8.1 mg/dL (8.5-10.1); Carbon Dioxide 23.8 meq/L (21.0-32.0); Chloride 108 meq/L (98-107); Glomerular Filtration Rate 36 mL/min (>89); Glucose,Random 132 mg/dL (74-106); Potassium 4.7 meq/L (3.5-5.1); Sodium 141 meq/L (136-145)
[2018-07-01 12:16] LABS: Alanine Aminotransferase 34 U/L (10-53)
[2018-07-01 12:19] LABS: Alkaline Phosphatase 129 U/L (45-117); Total Protein 6.1 g/dL (6.4-8.2)
[2018-07-02] MEDS: Levothyroxine 75 MCG Tablet PO SCH (05:00)
[2018-07-02] MEDS: Lisinopril 20 MG Tablet PO SCH (09:45)
[2018-07-02] MEDS: Metoprolol Tartrate 50 MG Tablet PO SCH (09:47)
[2018-07-02] MEDS: [UNRECOGNIZED DRUG - OTHER] PO SCH (09:54)
[2018-07-02] MEDS: Fenofibrate 48 MG Tablet PO SCH (10:22)
--- NOTE | 2018-07-02 13:34 | MD ---
cc: Lary Abdul MD DATE OF DISCHARGE: 07/02/2018 PROCEDURE: 06/29/2018. 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 HOSPITAL COURSE: She did well in the hospital. She was initially admitted to the intensive care unit for observation and supportive care and she continued to improve and was transferred within approximately 48 hours to a regular sanches. On the regular sanches, she has continued to do well today. At the time of visit, she is sitting out of bed. She is eating lunch. She has already walked around the hallway completely a couple of times. She felt steady on her feet. She has good family support and she inquires as to whether or not she can go home today and she will be going home with her family who will help to care for her at home. She does not believe that she needs physical therapy or home health necessarily because she is doing well, feeling well and she has her family to look out for her at home. In's and Out's: She has been voiding without difficulty. Urine output 2100. \ LABORATORY DATA: No labs today, but her H and H yesterday were 9.4 and 29. Her potassium is 4.7, creatinine is 1.4 which is consistent with baseline elevation on a chronic nature. PHYSICAL EXAMINATION: VITAL SIGNS: She is afebrile, pulse 72-81, respirations 18, blood pressure 171/78, O2 saturations 96%. GENERAL: She is alert and oriented x3. She is in bright spirits, no acute distress. LUNGS: Clear. CARDIOVASCULAR: Regular rate and rhythm. ABDOMEN: Nontender. The dressing is removed. The Steri-Strips are intact. The midline incision is healing well. There is some old dried blood, but no active bleeding or discharge. ABDOMEN: Nontender. EXTREMITIES: Nontender. In discussions she reports she is tolerating oral intake, voiding without difficulty, moving a lot of gas through, although not having a bowel movement yet. She has flatus. She is ambulating and is anxious to go home. ASSESSMENT: Postoperative day 3, overall doing well. The findings at the time of surgery and preliminary pathology discussed, activities and restrictions reviewed. She is to resume her prior medications. She will have tramadol for pain. She did take tramadol while she was an inpatient and she tolerated it without any adverse effect. She also knows she can supplement that with [id number] medication as needed. PLAN: Therefore anticipate discharge to home. MD NIEVES Mcintosh/EMILIA , 01:04 PM , 01:16 PM
== END 2018-07-02 14:48 | disposition home or self-care (01) ==
LOC: HSDI 07:55 → N03 18:45 → HCIN 07-01 22:02
PROVIDERS: ADMIT Obstetrics & Gynecology Gynecologic Oncology; ATTEND Obstetrics & Gynecology Gynecologic Oncology